=== PATIENT | male | born 1960 | race Caucasian/White ===

== ENCOUNTER → 2022-08-17 10:52 | Outpatient (BNVA) | payer BC, SELFPAY | PROVIDERS: Family Provider Family Medicine; PCP Family Medicine; Visit Provider Family Medicine | DX: Z12.5 Encounter for screening for malignant neoplasm of prostate (principal); Z00.00 Encounter for general adult medical examination without abnormal findings | CPT/HCPCS: 80053; 80061; G0103 ==

== ENCOUNTER → 2023-08-23 09:49 | Outpatient (BNVA) | payer BC, SELFPAY | PROVIDERS: Family Provider Family Medicine; PCP Family Medicine; Visit Provider Family Medicine | DX: Z00.00 Encounter for general adult medical examination without abnormal findings (principal); Z12.5 Encounter for screening for malignant neoplasm of prostate; Z13.6 Encounter for screening for cardiovascular disorders | CPT/HCPCS: 80053; 80061; 84153 ==

== ENCOUNTER → 2023-12-21 09:55 | Outpatient (BNVA) | payer BC, SELFPAY | PROVIDERS: Family Provider Family Medicine; PCP Family Medicine; Visit Provider Family Medicine | DX: Z13.220 Encounter for screening for lipoid disorders (principal); E03.9 Hypothyroidism, unspecified; N40.0 Benign prostatic hyperplasia without lower urinary tract symptoms; R73.09 Other abnormal glucose; R22.40 Localized swelling, mass and lump, unspecified lower limb; Z51.81 Encounter for therapeutic drug level monitoring | CPT/HCPCS: 80053; 80061; 83036; 84153; 84443; 85025; 86141 ==

== ENCOUNTER 2024-03-28 10:34 | Outpatient (CLI) | payer BC, SELFPAY ==
--- NOTE | 2024-03-28 11:00 | CT_ITS ---
WS: [id number] CT LEFT LOWER EXTREMITY WITH CONTRAST HISTORY: Leg mass Technique: All CT scans at [facility] use at least one of these dose optimization techniques: automated exposure control; mA and/or kV adjustment per patient size (includes targeted exams where dose is matched to clinical indication); or iterative reconstruction. DLP: 541.01 mGy.cm COMPARISON: None available. Contrast: 100 mL of Omnipaque 350. Well-circumscribed soft tissue mass inseparable from varicosities is noted in the medial LEFT lower e xtremity at the level of the tibial metaphysis. Mass measures 1.5 x 1.4 cm and is inseparable from en hancing varicosities. The varicosities enhance more than the mass which may be a partially thrombosed venous aneurysm. There is extensive varicosities throughout the LEFT lower extremity. No additional mass. No osseous a bnormality. No suprapatellar joint effusion. Mild atherosclerosis peroneal artery. CT/CT lower leg LT w con [id number] IMPRESSION: 1. Well-circumscribed soft tissue mass inseparable from varicosities in the me dial LEFT lower extremity. Due to its location I suspect this could be a partia lly thrombosed aneurysm. Suggest evaluation by ultrasound to confirm continuity with the vein or any vascularity. 2. Additional extensive varicosities throughout the LEFT lower extremity.
[2024-03-28 11:17] LABS: Blood Urea Nitrogen 12 mg/dL (8-23); Glomerular Filtration Rate 61.3 mL/min (90-130)
[2024-03-28] MEDS: iohexol 300 mg/mL 100 mL Btl IV (11:27)
== END 2024-03-28 10:35 | disposition home or self-care (01) ==
LOC: RAD 10:37
PROVIDERS: Family Provider Family Medicine; PCP Family Medicine; Visit Provider Family Medicine
DX: R22.42 Localized swelling, mass and lump, left lower limb (principal)
CPT/HCPCS: 73701; 82565; 84520; Q9967

== ENCOUNTER 2024-04-10 15:24 | Outpatient (CLI) | payer BC, SELFPAY ==
--- NOTE | 2024-04-10 16:00 | US_ITS ---
WS: [id number] ULTRASOUND SOFT TISSUES LEFT HISTORY: Left leg mass - possible thrombosed aneurysm COMPARISON: CT 03/28/2024 TECHNIQUE: 2-D and color Doppler imaging is submitted. Solid hypoechoic mass just below the knee joint, medial. This mass corresponds to the recently descri bed superficial mass seen by CT. This is a solid mass with some increased vascularity in the peripher y. The adjacent varicosities extend to an encase this mass. Some of the adjacent varicosities are thr ombosed. US/US soft tissue/extremity [id number] IMPRESSION: 1. Solid hypoechoic mass along the medial proximal tibia. This is a solid mass with some increased peripheral vascularity. Closely associated varicosities. I cannot confirm this is a thrombosed venous aneurysm. Very nonspecific appearan ce. Consider vascular surgery consultation. 2. There are numerous varicosities adjacent to the mass and some of which are thrombosed.
== END 2024-04-10 15:25 | disposition home or self-care (01) ==
LOC: RAD 15:24
PROVIDERS: Family Provider Family Medicine; PCP Family Medicine; Visit Provider Family Medicine
DX: R22.42 Localized swelling, mass and lump, left lower limb (principal); I82.812 Embolism and thrombosis of superficial veins of left lower extremity
CPT/HCPCS: 76882

== ENCOUNTER → 2024-08-22 09:44 | Outpatient (BNVA) | payer BC, SELFPAY | PROVIDERS: Family Provider Family Medicine; PCP Family Medicine; Visit Provider Family Medicine | DX: Z51.81 Encounter for therapeutic drug level monitoring (principal); Z13.220 Encounter for screening for lipoid disorders; Z12.5 Encounter for screening for malignant neoplasm of prostate | CPT/HCPCS: 80053; 80061; 84153; 85025 ==

== ENCOUNTER → 2024-12-27 09:33 | Outpatient (BNVA) | payer BC, SELFPAY | PROVIDERS: Family Provider Family Medicine; PCP Family Medicine; Visit Provider Family Medicine | DX: Z51.81 Encounter for therapeutic drug level monitoring (principal); R73.09 Other abnormal glucose | CPT/HCPCS: 80048; 83036 ==

== ENCOUNTER → 2025-06-26 09:41 | Outpatient (BNVA) | payer OTHER, SELFPAY | PROVIDERS: Family Provider Family Medicine; PCP Family Medicine; Visit Provider Family Medicine | DX: Z13.6 Encounter for screening for cardiovascular disorders (principal); I10 Essential (primary) hypertension; R73.09 Other abnormal glucose; E55.9 Vitamin D deficiency, unspecified; Z51.81 Encounter for therapeutic drug level monitoring | CPT/HCPCS: 80053; 80061; 82306; 83036; 84153; 85025 ==

== ENCOUNTER → 2025-08-20 16:32 | Outpatient (BNVA) | payer OTHER, SELFPAY | PROVIDERS: Family Provider Family Medicine; PCP Family Medicine; Visit Provider Family Medicine | DX: R30.0 Dysuria (principal) | CPT/HCPCS: 81000 ==

== ENCOUNTER → 2025-08-21 07:02 | Outpatient (BNVA) | payer OTHER, SELFPAY | PROVIDERS: Family Provider Family Medicine; PCP Family Medicine; Visit Provider Family Medicine | DX: R30.0 Dysuria (principal) | CPT/HCPCS: 87086 ==

== ENCOUNTER 2025-09-04 16:30 | Emergency (ER) | payer OTHER, SELFPAY ==
[2025-09-04 16:33] VITALS: BP 131/91; PULSE 78; TEMP 36.7; O2SAT 96
[2025-09-04 18:05] VITALS: BP 120/89
--- NOTE | 2025-09-04 18:28 | PC.NURSE ---
nurse called med surg for bladder scanner, was told scanner was on med surg. nurse went to get bladder scanner, after nurse got to med surg; nurse was told the scanner was being used.
[2025-09-04 18:35] LABS: Glucose Urine UA Negative (Normal); Nitrate Urine Negative (Negative); Specific Gravity, Urine 1.015 (1.005-1.030)
[2025-09-04 18:40] VITALS: BP 141/93
[2025-09-04 19:00] VITALS: BP 149/98; PULSE 67; O2SAT 98
[2025-09-04 19:30] VITALS: BP 168/96; PULSE 65; O2SAT 97
[2025-09-04 20:21] LABS: Hematocrit 40.7 % (37-53); Hemoglobin 13.50 g/dL (11.27-16.99); Mean Corpuscular HGB Conc 33.2 g/dL (30-55); Mean Corpuscular Hemoglobin 30.6 pg (27-33); Mean Corpuscular Volume 92.3 fl (82-101); Nucleated Red Blood Cells % 0 %; Platelet Count 256 10^3/cmm (157-399); Red Blood Count 4.41 10^6/uL (3.85-5.65); White Blood Count 6.11 10^3/uL (3.29-11.43)
[2025-09-04 20:42] LABS: Anion Gap 16.1 (5-19); Blood Urea Nitrogen 22 mg/dL (8-23); Calcium 9.3 mg/dL (8.5-10.5); Carbon Dioxide 22 mmol/L (22-29); Chloride 105 mmol/L (98-107); Creatinine Clr Calc Pharmacy 74.5514; Glucose 93 mg/dL (65-115); Osmolality Calculated 291 mOsm/kg (285-295); Potassium 4.1 mmol/L (3.5-5.1); Sodium 139 mmol/L (136-145)
--- NOTE | 2025-09-04 20:51 | W.ED.MALEGU ---
HPI - Male Genitourinary General: Chief complaint: Urogenital-Male Stated complaint: having trouble urnieating Time Seen by Provider: 09/04/25 17:52 History of Present Illness: Patient is a well-appearing 65-year-old male seen for progressive worsening symptom of bladder retention. He states that he has a difficulty initiating and maintaining urinary stream for several months but that it got worse acutely in the last 2 weeks and even more so in the last 2 days causing him significant suprapubic discomfort and the feeling of fullness. He states that he is still able to pass urine but only a small amount and it is painful doing so. He was seen by urology many years ago and started on tamsulosin which she still takes twice daily. He denies fever, altered mental status, confusion, weakness, and has no other acute complaints. He has no flank pain. Related Data Home Medications ?Medication ?Instructions ?Recorded ?Confirmed tamsulosin 0.4 mg capsule 0.4 mg PO DAILY 06/26/25 09/04/25 Previous Rx's ?Medication ?Instructions ?Recorded acyclovir 400 mg tablet 400 mg PO QID 7 days #28 tabs 12/20/23 finasteride 5 mg tablet 5 mg PO DAILY #30 tabs 08/20/25 losartan 100 mg tablet 100 mg PO DAILY #90 tabs 08/20/25 Allergies Allergy/AdvReac Type Severity Reaction Status Date / Time Penicillins Allergy Severe Unknown Verified 09/04/25 16:38 [facility] ED [facility]: Medical History (Updated 09/04/25 @ 20:50 by Izaiah Carroll DO) Hx of gastric ulcer BPH (benign prostatic hyperplasia) Surgical History Hx of appendectomy Family History Sister Lymphoma Father Hypertension Other Cancer Social History Smoking and tobacco/nicotine status: never used tobacco/nicotine Alcohol intake: never Substance/Drug Use: never Additional social history: Worked for [employer] Marital status: Physical Exam Const: COMMON NORMALS: no acute distress, patient oriented x3 and alert HENMT: COMMON NORMALS: normocephalic and atraumatic HEAD & SCALP: normocephalic and atraumatic Eye: COMMON NORMALS: Equal, round and reactive pupils present, EOMs intact bilaterally and no scleral icterus PUPIL: Yes Equal, round and reactive pupils present Resp: COMMON NORMALS: normal respiratory effort and No retractions Cardio: COMMON NORMALS: regular rate, regular rhythm and No murmurs present (Cardio) RATE: regular rate RHYTHM: regular rhythm GI: COMMON NORMALS: Normal to inspection, nondistended, normoactive bowel sounds present and Soft to palpation INSPECTION: Yes abdominal distension PALPATION: Yes Soft to palpation OTHER: Mild suprapubic fullness and tenderness Neuro: COMMON NORMALS: patient oriented x3 SENSORIUM/ORIENTATION: Yes alert Skin: COMMON NORMALS: no rashes or lesions noted GENERAL SKIN EXAM: no rashes or lesions noted Course Vital Signs: Vital signs: Vital Signs Temperature 98.1 F 09/04/25 16:33 Pulse Rate 65 09/04/25 19:30 Blood Pressure 168/96 09/04/25 19:30 Pulse Oximetry 97 09/04/25 19:30 Oxygen Delivery Me thod Room Air 09/04/25 16:33 MDM - Male Medical Decision Making Patient remained hemodynamically stable throughout ED course. Bladder scan showed greater than 2 L retained after voiding. He had immediate relief of symptoms with Anderson catheter placement. Urine does not show infection and BMP does not show evidence of kidney dysfunction caused by his obstruction. He already plans to be seen by urology in [place] at [facility] in 15 days. He will call them to be seen sooner if possible. He was instructed on how to care for his Anderson catheter and will be discharged in stable condition knowing that he is always welcome back in the emergency department if symptoms get worse before outpatient follow-up Lab Data 09/04/25 19:53 09/04/25 19:53 Laboratory Results WBC 6.11 10^3/uL (3.29-11.43) 09/04/25 19:53 RBC 4.41 10^6/uL (3.85-5.65) 09/04/25 19:53 Hgb 13.50 g/dL (11.27-16.99) 09/04/25 19:53 Hct 40.7 % (37-53) 09/04/25 19:53 MCV 92.3 fl (82-101) 09/04/25 19:53 MCH 30.6 pg (27-33) 09/04/25 19:53 MCHC 33.2 g/dL (30-55) 09/04/25 19:53 RDW 13.0 % (12.1-15.1) 09/04/25 19:53 Plt Count 256 10^3/cmm (157-399) 09/04/25 19:53 MPV 9.4 fL (7.4-10.4) 09/04/25 19:53 Neut % (Auto) 63.2 % 09/04/25 19:53 Lymph % (Auto) 20.9 % 09/04/25 19:53 [place] % (Auto) 11.6 % 09/04/25 19:53 Eos % (Auto) 3.8 % 09/04/25 19:53 Baso % (Auto) 0.3 % 09/04/25 19:53 Neut # (Auto) 3.86 10^3/uL (1.8-7.7) 09/04/25 19:53 Lymph # (Auto) 1.3 10^3/uL (0.8-4.8) 09/04/25 19:53 [place] # (Auto) 0.7 10^3/uL (0.2-0.9) 09/04/25 19:53 Eos # (Auto) 0.2 10^3/uL (0.0-0.8) 09/04/25 19:53 Baso # (Auto) 0.0 10^3/uL (0.0-0.1) 09/04/25 19:53 Nucleated RBC % (auto) 0 % 09/04/25 19:53 Nucleated RBCs # 0.0 /100WBC 09/04/25 19:53 Sodium 139 mmol/L (136-145) 09/04/25 19:53 Potassium 4.1 mmol/L (3.5-5.1) 09/04/25 19:53 Chloride 105 mmol/L (98-107) 09/04/25 19:53 Carbon Dioxide 22 mmol/L (22-29) 09/04/25 19:53 Anion Gap 16.1 (5-19) 09/04/25 19:53 BUN 22 mg/dL (8-23) 09/04/25 19:53 Creatinine 1.1 mg/dL (0.7-1.2) 09/04/25 19:53 GFR Calculation 67.4 mL/min (90-130) L 09/04/25 19:53 Glucose 93 mg/dL (65-115) 09/04/25 19:53 Calculated Osmolality 291 mOsm/kg (285-295) 09/04/25 19:53 Calcium 9.3 mg/dL (8.5-10.5) 09/04/25 19:53 Urine Color Yellow (Yellow) 09/04/25 18:15 Urine Appearance Clear (CLEAR) 09/04/25 18:15 Urine pH 6.0 (5-7) 09/04/25 18:15 Ur Specific [place] 1.015 (1.005-1.030) 09/04/25 18:15 Urine Protein Negative (Negative) 09/04/25 18:15 Urine Glucose (UA) Negative (Normal) 09/04/25 18:15 Urine Ketones Negative (Negative) 09/04/25 18:15 Urine Blood Negative (Negative) 09/04/25 18:15 Urine Nitrate Negative (Negative) 09/04/25 18:15 Urine Bilirubin Negative (Negative) 09/04/25 18:15 Prot Sulfosalicylic Acd Cancelled 09/04/25 17:49 Urine Urobilinogen 0.2 mg/dL (Negative) 09/04/25 18:15 Ur Leukocyte Esterase Negative (Negative) 09/04/25 18:15 Urine RBC 3-5 /hpf (0-2) 09/04/25 18:15 Urine WBC 0-5 /hpf (0-5) 09/04/25 18:15 Ur Squamous Epith Cells 0-5 /hpf (0-5) 09/04/25 18:15 Ur Transition Epith Cell Cancelled 09/04/25 17:49 Ur Renal Epithelial Cell Cancelled 09/04/25 17:49 Calcium Oxalate Crystal Cancelled 09/04/25 17:49 Uric Acid Crystals Cancelled 09/04/25 17:49 Triple Phos Crystals Cancelled 09/04/25 17:49 Other Crystals Cancelled 09/04/25 17:49 Amorphous Sediment Not Reportable 09/04/25 18:15 Urine Bacteria None seen /hpf (NONE) 09/04/25 18:15 Hyaline Casts 0-4 /lpf H 09/04/25 18:15 Fine Granular Casts Cancelled 09/04/25 17:49 Coarse Granular Casts Cancelled 09/04/25 17:49 RBC Casts Cancelled 09/04/25 17:49 Other Casts Cancelled 09/04/25 17:49 Urine Mucus Cancelled 09/04/25 17:49 Urine Trichomonas Cancelled 09/04/25 17:49 Urine Yeast Cancelled 09/04/25 17:49 Urine Sperm Cancelled 09/04/25 17:49 Ur Oval Fat Bodies Cancelled 09/04/25 17:49 No radiology studies performed this visit Discharge Plan Discharge Patient Disposition: Home Clinical Impression: Acute urinary retention Condition: Stable Prescriptions: No Action acyclovir 400 mg tablet 400 mg PO QID 7 Days Qty: 28 1RF losartan 100 mg tablet 100 mg PO DAILY Qty: 90 3RF finasteride 5 mg tablet 5 mg PO DAILY Qty: 30 3RF tamsulosin 0.4 mg capsule 0.4 mg PO DAILY Discharge Orders: Discharge ED (Routine); Ordered 09/04/25 Ordered By: Izaiah Carroll Referrals: Marcus Angelo DO [Family Provider, Family Practice] Jamar Wetzel MD [Primary Care Provider, [facility]] Discharge Diet: Usual diet Discharge Activity: Increase activity as tolerated Patient Instructions: Anderson Catheter Care, Urinary Retention in Men (ED), Patient Portal & [place] Instructions Activity Restrictions/Additional Instructions: Please keep your catheter as clean as possible and contact your urologist at [facility] in [place] to see if you can be seen more swiftly. If [facility] has an opening in their clinic before you can be seen at the [facility] it would be reasonable to go there instead. Print Language: Unknown Coding Level of Care Code ED Training Program Manager for Gee Henry
[2025-09-04 21:04] VITALS: BP 142/91; PULSE 66; O2SAT 94
== END 2025-09-04 21:15 | disposition home or self-care (01) ==
PROVIDERS: Emergency Provider Student in an Organized Health Care Education/Training Program; Family Provider Family Medicine; PCP Family Medicine
DX: R33.8 Other retention of urine (principal)
CPT/HCPCS: 36415; 51798; 80048; 81000; 81001; 85025; 87086; 99283